=== PATIENT | male | born 1990 | race Caucasian/White ===

== ENCOUNTER 2023-10-09 09:34 | Emergency (ER) | payer MEDICAID ==
[~2023-10-09] VITALS: Ht 180.3 cm; Wt 81.0 kg
[2023-10-09 09:36] VITALS: BP 136/81; PULSE 114; RESP 16; TEMP 98
[2023-10-09 09:49] LABS: COVID AG,FIA SOURCE NASAL SWAB
[2023-10-09 10:12] LABS: SARS-COV2 (COVID) ANTIGEN,FIA Negative (Negative)
[2023-10-09 10:13] LABS: INFLUENZA TYPE A NEGATIVE FOR TYPE A (NEGATIVE); INFLUENZA TYPE B NEGATIVE FOR TYPE B (NEGATIVE)
[2023-10-09] MEDS ORDERED: AZIT250T9 PO (10:23)
[2023-10-09] MEDS ORDERED: PRED-554 PO (10:23)
[2023-10-09] MEDS ORDERED: ALBU18HF12 IH (10:31)
== END 2023-10-09 10:33 | disposition home or self-care (01) ==
LOC: EMS 09:36
DX: J40 Bronchitis, not specified as acute or chronic (principal); Z20.822 Contact with and (suspected) exposure to COVID-19
CPT/HCPCS: 71045; 87804; 99284